=== PATIENT | female | born 1970 | race Caucasian/White ===

== ENCOUNTER 2017-04-03 19:30 | Emergency (ER) | payer MEDICARE ==
[2017-04-03] MEDS ORDERED: Hydromorphone 1 mg/ml Ampule IM ONE (20:15)
[2017-04-03] MEDS ORDERED: Phenergan 25 MG INJ IM ONE (20:15)
[2017-04-03] MEDS ORDERED: Phenergan 25 MG INJ ONE (20:19)
[2017-04-03] MEDS ORDERED: Hydromorphone 1 mg/ml Ampule ONE (20:19)
[2017-04-03 20:29] VITALS: O2SAT 98
--- NOTE | 2017-04-03 20:29 | ERPHSYRPT ---
- History of Present Illness Time Seen by Provider: 04/03/17 20:10 Source: patient Exam Limitations: no limitations Patient Subjective Stated Complaint: pt states she has a migraine since about 3 am. Triage Nursing Assessment: pt alert and oriented, asnwers questions approp. pt ambulatory with steady gait noted. respirations nonlabored. pupils equal and reactive. bilat upper and lower ext strength wnl. Physician History: FOR THE PAST 17 HOURS PT HAS HAD HER TYPICAL MIGRAINE HEADACHE WITH NAUSEA, VOMITING X4 WITHOUT BLOOD, PHOTOPHOBIA AND PHONOPHOBIA. LAST CT HEAD WAS THIS YEAR & WNL. PT DENIES CHEST PAIN, SHORTNESS OF AIR, ABDOMINAL PAIN, WEAKNESS, NUMBNESS. Allergies/Adverse Reactions: Penicillins Allergy (Verified 04/03/17 20:02) Rash Home Medications: Estradiol [Estrace] 1 applic VG UD 04/03/17 [History] Fluticasone Propionate [Flonase NASAL] 1 spray NS DAILY 04/03/17 [History] Levothyroxine Sodium [Synthroid] 125 mcg PO DAILY 04/03/17 [History] Nortriptyline HCl 50 mg PO DAILY 04/03/17 [History] Omeprazole 20 MG [Prilosec 20 mg] 20 mg PO DAILY 04/03/17 [History] Paroxetine HCl [Paxil] 40 mg PO DAILY 04/03/17 [History] Pravastatin Sodium 40 mg PO HS 04/03/17 [History] Prazosin HCl [Minipress] 1 mg PO BID 04/03/17 [History] Topiramate 100 mg [Topamax 100 MG] 100 mg PO BID 04/03/17 [History] Hx Tetanus, Diphtheria Vaccination/Date Given: Yes Hx Influenza Vaccination/Date Given: No Hx Pneumococcal Vaccination/Date Given: No Immunizations Up to Date: Yes - Review of Systems Constitutional: No Fever, No Chills Eyes: Photophobia Respiratory: No Dyspnea Cardiac: No Chest Pain Abdominal/Gastrointestinal: Nausea, Vomiting, No Abdominal Pain Neurological: Headache, Other (PHONOPHOBIA) All Other Systems: Reviewed and Negative - Past Medical History Neurological History: Migraines Psycho-Social History: Anxiety, Depression - Past Surgical History Past Surgical History: Yes Gastrointestinal: Cholecystectomy Female Surgical History: Hysterectomy - Social History Smoking Status: Former smoker Exposure to second hand smoke: Yes Drug Use: none Patient Lives Alone: No - Female History Hx Last Menstrual Period: hyster Hx Now: No - Nursing Vital Signs Nursing Vital Signs: Initial Vital Signs Pulse Rate 85 04/03/17 19:30 Respiratory Rate 18 04/03/17 19:30 Blood Pressure 144/90 04/03/17 19:30 O2 Sat by Pulse Oximetry 98 04/03/17 19:30 Pain Scale Pain Intensity 10 - Physical Exam General Appearance: moderate distress, alert Eye Exam: PERRL/EOMI, photophobia Ears, Nose, Throat Exam: TMs normal, pharynx normal, moist mucous membranes Neck Exam: normal inspection Respiratory Exam: lungs clear Cardiovascular Exam: normal heart sounds Gastrointestinal/Abdomen Exam: soft, normal bowel sounds Back Exam: normal range of motion Extremity Exam: normal inspection, No pedal edema Neurologic Exam: alert, cooperative, sensation nml Skin Exam: warm, dry SpO2 Interpretation: normal SpO2: 98 Oxygen Delivery: Room Air - Course Nursing assessment & vital signs reviewed: Yes Ordered Tests: Medication Summary Discontinued Medications Generic Name Dose Route Start Last Admin Trade Name Freq PRN Reason Stop Dose Admin Hydromorphone HCl 2 mg 04/03/17 20:15 Hydromorphone 1 Mg/Ml Ampule IM 04/03/17 20:16 STAT ONE Hydromorphone HCl Confirm 04/03/17 20:19 Hydromorphone 1 Mg/Ml Ampule Administered 04/03/17 20:20 Dose 2 mg .ROUTE .STK-MED ONE Promethazine HCl 25 mg 04/03/17 20:15 Phenergan 25 Mg Inj IM 04/03/17 20:16 STAT ONE Promethazine HCl Confirm 04/03/17 20:19 Phenergan 25 Mg Inj Administered 04/03/17 20:20 Dose 25 mg .ROUTE .STK-MED ONE - Departure Time of Disposition: 20:33 Departure Disposition: Home Clinical Impression: MIGRAINE HEADACHE, VOMITING Condition: Stable Critical Care Time: No Instructions: Headache, Vomiting -- Adult Additional Instructions: FOLLOW UP WITH PRIVATE DOCTOR TOMORROW. Prescriptions: Promethazine HCl 25 mg [Phenergan 25 mg] 25 mg PO Q4H PRN PRN #14 tablet PRN Reason: Nausea/Vomiting
[2017-04-03 20:44] VITALS: BP 149/87; PULSE 89
== END 2017-04-03 20:44 | disposition home or self-care (01) ==
LOC: ED 19:30
DX: G43.909 Migraine, unspecified, not intractable, without status migrainosus (principal); R11.10 Vomiting, unspecified
CPT/HCPCS: 96372; 99284; J1170; J2550

== ENCOUNTER 2018-08-16 10:10 | Day surgery (SDC) | payer MEDICARE ==
[2018-08-16] MEDS ORDERED: DIPRIVAN 200 MG/20 ML IV ONE (10:11)
[2018-08-16] MEDS ORDERED: LIDOCAINE HCL 2% 100 MG/5 ML IJ ONE (10:11)
[2018-08-16] MEDS ORDERED: Depo-Medrol 40 MG/ML IM ONE (10:11)
[2018-08-16] MEDS ORDERED: Ketamine HCl 50 MG/ML IJ ONE (10:11)
[2018-08-16] MEDS ORDERED: Xylocaine-Mpf 2% 5 Ml Vial IJ ONE (10:11)
--- NOTE | 2018-08-16 12:36 | XRAY ---
Indication: Bilateral L4-S1 MBB. Intraoperative fluoroscopy was provided for 6 seconds. Single digital spot image submitted for interpretation demonstrates posterior needle tips along the expected course of the left and right L4-S1 nerve roots. Correlate with intraoperative findings/report.
--- NOTE | 2018-08-16 12:38 | XRAY ---
6 seconds fluoroscopy time in surgery for bilateral L4-S1 MBB.
[2018-08-16] MEDS ORDERED: Lactated Ringers 1,000 ML IV ONE (17:10)
== END 2018-08-16 12:10 | disposition home or self-care (01) ==
LOC: SDC-PAIN 10:10
PROVIDERS: ATTEND Psychiatry & Neurology Pain Medicine
DX: M47.817 Spondylosis without myelopathy or radiculopathy, lumbosacral region (principal); Z79.899 Other long term (current) drug therapy; F32.9 Major depressive disorder, single episode, unspecified; K21.9 Gastro-esophageal reflux disease without esophagitis; F17.200 Nicotine dependence, unspecified, uncomplicated
CPT/HCPCS: 64493; 64494; 72020; 77003; J1030; J2704

== ENCOUNTER 2018-09-06 09:01 | Day surgery (SDC) | payer MEDICARE ==
[2018-09-06] MEDS ORDERED: Marcaine 0.5% SDV 10 ML IJ ONE (09:02)
[2018-09-06] MEDS ORDERED: XYLOCAINE 1% HCL 20 ML MDV IJ ONE (09:02)
[2018-09-06] MEDS ORDERED: Ketamine HCl 50 MG/ML IV ONE (09:02)
[2018-09-06] MEDS ORDERED: Depo-Medrol 40 MG/ML IM ONE (09:02)
[2018-09-06] MEDS ORDERED: Xylocaine 1% Vial 30 ML PF IJ ONE (09:02)
[2018-09-06] MEDS ORDERED: DIPRIVAN 200 MG/20 ML IV ONE (09:02)
--- NOTE | 2018-09-06 12:20 | XRAY ---
Indication: Bilateral L4-S1 MBB. Intraoperative fluoroscopy was provided for 11 seconds. Single digital spot image submitted for interpretation demonstrates posterior needle tips projecting over the expected course of the left and right L4-S1 nerve roots. Correlate with intraoperative findings/report.
--- NOTE | 2018-09-06 12:22 | XRAY ---
11 seconds fluoroscopy time in surgery for bilateral L4-S1 MBB.
[2018-09-06] MEDS ORDERED: Lactated Ringers 1,000 ML IV ONE (13:47)
== END 2018-09-06 11:10 | disposition home or self-care (01) ==
LOC: SDC-PAIN 09:01
PROVIDERS: ATTEND Psychiatry & Neurology Pain Medicine
DX: M47.816 Spondylosis without myelopathy or radiculopathy, lumbar region (principal); K21.9 Gastro-esophageal reflux disease without esophagitis; M19.90 Unspecified osteoarthritis, unspecified site; F32.9 Major depressive disorder, single episode, unspecified; Z79.899 Other long term (current) drug therapy
CPT/HCPCS: 64493; 64494; 72020; 77002; J1030; J2001; J2704

== ENCOUNTER 2018-10-04 11:59 | Day surgery (SDC) | payer MEDICARE ==
[2018-10-04] MEDS ORDERED: DIPRIVAN 200 MG/20 ML IV ONE (12:00)
[2018-10-04] MEDS ORDERED: Marcaine 0.5% SDV 10 ML IJ ONE (12:00)
[2018-10-04] MEDS ORDERED: Depo-Medrol 40 MG/ML IM ONE (12:00)
[2018-10-04] MEDS ORDERED: Xylocaine 1% Vial 30 ML PF IJ ONE (12:00)
[2018-10-04] MEDS ORDERED: Lactated Ringers 1,000 ML IV ONE (13:34)
--- NOTE | 2018-10-04 14:57 | XRAY ---
Indication: Right L4-S1 RFA. Intraoperative fluoroscopy was provided for 20 seconds. 2 digital spot images submitted for interpretation demonstrates posterior needle tips projecting over the expected course of the right L4-S1 nerve roots. Correlate with intraoperative findings/report.
--- NOTE | 2018-10-04 15:02 | XRAY ---
20 seconds fluoroscopy time in surgery for right L4-S1 RFA.
== END 2018-10-04 13:37 | disposition home or self-care (01) ==
LOC: SDC-PAIN 11:59
PROVIDERS: ATTEND Psychiatry & Neurology Pain Medicine
DX: M47.816 Spondylosis without myelopathy or radiculopathy, lumbar region (principal); K21.9 Gastro-esophageal reflux disease without esophagitis; M19.90 Unspecified osteoarthritis, unspecified site; F32.9 Major depressive disorder, single episode, unspecified
CPT/HCPCS: 64635; 64636; 72100; 77002; J1030; J2001; J2704

== ENCOUNTER 2018-10-18 11:57 | Day surgery (SDC) | payer MEDICARE ==
[2018-10-18] MEDS ORDERED: Xylocaine 1% Vial 30 ML PF IJ ONE (11:58)
[2018-10-18] MEDS ORDERED: Depo-Medrol 40 MG/ML IM ONE (11:58)
[2018-10-18] MEDS ORDERED: Marcaine 0.5% SDV 10 ML IJ ONE (11:58)
[2018-10-18] MEDS ORDERED: DIPRIVAN 200 MG/20 ML IV ONE ×2 (13:24→13:28)
[2018-10-18] MEDS ORDERED: Lactated Ringers 1,000 ML IV ONE (13:35)
--- NOTE | 2018-10-18 14:11 | XRAY ---
17 seconds of fluoroscopy was used in surgery for a left L4-L5 and L5-S1 RFA.
--- NOTE | 2018-10-18 14:22 | XRAY ---
Indication: Left L4-S1 RFA. Intraoperative fluoroscopy was provided for 17 seconds. 2 digital spot image submitted for interpretation demonstrates posterior needle tips projecting over the left L4-S1 nerve roots. Correlate with intraoperative findings/report.
== END 2018-10-18 14:02 | disposition home or self-care (01) ==
LOC: SDC-PAIN 11:57
PROVIDERS: ATTEND Psychiatry & Neurology Pain Medicine
DX: M47.816 Spondylosis without myelopathy or radiculopathy, lumbar region (principal); K21.9 Gastro-esophageal reflux disease without esophagitis; M19.90 Unspecified osteoarthritis, unspecified site; F32.9 Major depressive disorder, single episode, unspecified
CPT/HCPCS: 64635; 64636; 72100; 77002; J1030; J2001; J2704

== ENCOUNTER 2019-01-03 11:23 | Day surgery (SDC) | payer MEDICARE ==
[2019-01-03] MEDS ORDERED: Marcaine 0.5% SDV 10 ML IJ ONE (11:24)
[2019-01-03] MEDS ORDERED: Depo-Medrol 40 MG/ML IM ONE (11:24)
[2019-01-03] MEDS ORDERED: Ketamine HCl 50 MG/ML ONE (13:02)
[2019-01-03] MEDS ORDERED: DIPRIVAN 200 MG/20 ML IV ONE (13:02)
[2019-01-03] MEDS ORDERED: Zofran 4 MG/2 ML VIAL ONE (13:27)
--- NOTE | 2019-01-03 14:52 | XRAY ---
16 seconds fluoroscopy time in surgery for right SI joint.
--- NOTE | 2019-01-03 14:58 | XRAY ---
Indication: Right SI joint injection. Intraoperative fluoroscopy was provided for 16 seconds. 2 digital spot images submitted for interpretation demonstrates posterior needle tip projecting over the inferior right SI joint. Correlate with intraoperative findings/report.
[2019-01-03] MEDS ORDERED: Lactated Ringers 1,000 ML IV ONE (15:54)
== END 2019-01-03 13:50 | disposition home or self-care (01) ==
LOC: SDC-PAIN 11:23
PROVIDERS: ATTEND Psychiatry & Neurology Pain Medicine
DX: M46.1 Sacroiliitis, not elsewhere classified (principal); K21.9 Gastro-esophageal reflux disease without esophagitis; Z79.899 Other long term (current) drug therapy
CPT/HCPCS: 72020; 77002; J1030; J2405; J2704

== ENCOUNTER 2020-01-29 17:26 | Emergency (ER) | payer MEDICARE ==
[2020-01-29 17:45] VITALS: O2SAT 98
--- NOTE | 2020-01-29 18:10 | ERPHSYRPT ---
- History of Present Illness Time Seen by Provider: 01/29/20 17:55 Source: patient Exam Limitations: clinical condition Patient Subjective Stated Complaint: anxiety and nausea Triage Nursing Assessment: pt to ED c/o anxiety and nausea onset 9 days ago. pt states her psychiatrist had blood drawn last week and she was told her WBC count was high. pt states she has attempted to go to [place] and attempted to notify those staff members. states "they just dont seem to care about my anxiety or my WBC." pt appears very tearful and anxious when talking about self and experiences. denies SI/HI. states she does have hx anxiety and depression and ta kes paxil daily and valium PRN (new last week). Physician History: This is a 49-year-old white female who is obese and has a history of hypertension and is on thyroid replacement therapy and has significant anxiety issues. Her psychiatrist liyah labs last week and there was some abnormalities including slightly elevated white count and slightly elevated liver function te st. The patient states that she is beside herself and has had nausea and has not been taking much and. Patient does have a history of pancreatitis in the past. Patient is here at the emergency department because her psychiatrist told her that if she was not feeling well to go to the emergency room. Patient denies chest pain and she denies shortness of air. She does not have significant abdominal pain but she does have some. Timing/Duration: day(s) (Several days) Severity: mild Associated Symptoms: nausea, abdominal pain, loss of appetite, weakness, No vomiting, No shortness of breath, No chest pain Allergies/Adverse Reactions: diphenhydramine [From Benadryl] Allergy (Mild, Verified 01/29/20 17:52) Penicillins Allergy (Verified 01/29/20 17:52) Rash Home Medications: Fluticasone Propionate [Flonase NASAL] 1 spray NS DAILY PRN PRN 04/03/17 [History] Levothyroxine Sodium [Synthroid] 125 mcg PO DAILY 04/03/17 [History] Omeprazole 20 MG [Prilosec 20 mg] 20 mg PO DAILY 04/03/17 [History] PARoxetine HCl [Paxil] 80 mg PO DAILY 04/03/17 [History] Pravastatin Sodium 40 mg PO HS 04/03/17 [History] Prazosin HCl [Minipress] 1 mg PO BID 04/03/17 [History] estradioL [Estrace] 1 applic VG UD 04/03/17 [History] Diazepam [Valium] 5 mg PO BID 01/29/20 [History] Dicyclomine HCl 20 mg [Bentyl 20 mg] 20 mg PO BID 01/29/20 [History] Hx Tetanus, Diphtheria Vaccination/Date Given: No Hx Influenza Vaccination/Date Given: No Hx Pneumococcal Vaccination/Date Given: No Immunizations Up to Date: Yes Travel Risk - International Travel Have you traveled outside of the country in past 3 weeks: No - Coronavirus Screening Are you exhibiting any of the following symptoms?: No Close contact with a COVID-19 positive Pt in past 14-21 Days: No - Review of Systems Constitutional: Weakness Eyes: No Symptoms Ears, Nose, & Throat: No Symptoms Respiratory: No Symptoms Cardiac: No Symptoms Abdominal/Gastrointestinal: Abdominal Pain, Nausea, Appetite Changes Genitourinary Symptoms: No Symptoms Musculoskeletal: No Symptoms Skin: No Symptoms Neurological: No Symptoms Psychological: Anxiety Endocrine: No Symptoms Hematologic/Lymphatic: No Symptoms Immunological/Allergic: No Symptoms All Other Systems: Reviewed and Negative - Past Medical History Pertinent Past Medical History: Yes Neurological History: Migraines ENT History: No Pertinent History Cardiac History: No Pertinent History Respiratory History: No Pertinent History Endocrine Medical History: No Pertinent History Musculoskeletal History: No Pertinent History GI Medical History: No Pertinent History History: No Pertinent History Psycho-Social History: Anxiety, Depression Female Reproductive Disorders: No Pertinent History - Past Surgical History Past Surgical History: Yes Neuro Surgical History: No Pertinent History Cardiac: No Pertinent History Respiratory: No Pertinent History Gastrointestinal: Cholecystectomy Genitourinary: No Pertinent History Musculoskeletal: No Pertinent History Female Surgical History: Hysterectomy - Social History Smoking Status: Former smoker Exposure to second hand smoke: Yes Drug Use: marijuana Patient Lives Alone: No - Female History Hx Now: No - Nursing Vital Signs Nursing Vital Signs: Initial Vital Signs Temperature 97.9 F 01/29/20 17:38 Pulse Rate 73 01/29/20 17:38 Respiratory Rate 01/29/20 17:38 Blood Pressure 118/68 01/29/20 17:38 O2 Sat by Pulse Oximetry 98 01/29/20 17:38 Pain Scale Pain Intensity 9 - Physical Exam General Appearance: mild distress, alert, anxiety, obese Eye Exam: PERRL/EOMI, eyes nml inspection Ears, Nose, Throat Exam: normal ENT inspection, moist mucous membranes Neck Exam: normal inspection, non-tender, supple, full range of motion Respiratory Exam: normal breath sounds, lungs clear, airway intact, No chest tenderness, No respiratory distress Cardiovascular Exam: regular rate/rhythm, normal heart sounds, normal peripheral pulses Gastrointestinal/Abdomen Exam: soft, normal bowel sounds, tenderness (Mild diffuse), No guarding Pelvic Exam: not done Rectal Exam: not done Back Exam: normal inspection, normal range of motion, No CVA tenderness, No vertebral tenderness Extremity Exam: normal inspection, normal range of motion, pelvis stable Neurologic Exam: alert, oriented x 3, cooperative, cartographic aide II-XII nml as tested, nml cerebellar function, nml station & gait, sensation nml Skin Exam: normal color, warm, dry Lymphatic Exam: No adenopathy SpO2 Interpretation: normal SpO2: 98 O2 Delivery: Room Air - Course Nursing assessment & vital signs reviewed: Yes EKG Interpreted by Me: RATE (71), Left Manvel Deviation, NORMAL INTERVALS, NORMAL QRS, Other (The EKG computer reading says ST elevation. However, I do not believe this patient has ST elevation. We will repeat the EKG.) Ordered Tests: Active Orders 24 hr Category Date Time Status EKG-ER Only STAT Care 01/29/20 18:11 Active IV Insertion STAT Care 01/29/20 18:11 Active AMYLASE Stat Lab 01/29/20 18:25 Completed CBC W DIFF Stat Lab 01/29/20 18:25 Completed CMP Stat Lab 01/29/20 18:25 Completed CULTURE,URINE Stat Lab 01/29/20 18:25 Received LIPASE Stat Lab 01/29/20 18:25 Completed Lactic Acid Stat Lab 01/29/20 18:30 Completed T4 (Thyroxine) Stat Lab 01/29/20 18:25 Received TROPONIN Q3H Lab 01/29/20 18:25 Completed TROPONIN Q3H Lab 01/29/20 21:15 Ordered TROPONIN Q3H Lab 01/30/20 00:15 Ordered TROPONIN Q3H Lab 01/30/20 03:15 Ordered TROPONIN Q3H Lab 01/30/20 06:15 Ordered TSH [TSH, 3RD Generation] Stat Lab 01/29/20 18:25 Received UA W/RFX UR CULTURE Stat Lab 01/29/20 18:25 Completed Medication Summary Discontinued Medications Generic Name Dose Route Start Last Admin Trade Name [facility] PRN Reason Stop Dose Admin Sodium Chloride 1,000 mls @ 999 mls/hr 01/29/20 18:11 01/29/20 18:38 Sodium Chloride 0.9% 1000 Ml IV 01/29/20 19:11 999 mls/hr .Q1H1M STA Administration Sodium Chloride Confirm 01/29/20 18:36 Sodium Chloride 0.9% 1000 Ml Administered 01/29/20 18:37 Dose 1,000 mls @ ud .ROUTE .STK-MED ONE Lorazepam 1 mg 01/29/20 19:10 01/29/20 19:22 Ativan 2 Mg/1 Ml Vial IV 01/29/20 19:11 1 mg STAT ONE Administration Lorazepam Confirm 01/29/20 19:19 Ativan 2 Mg/1 Ml Vial Administered 01/29/20 19:20 Dose 2 mg .ROUTE .STK-MED ONE Ondansetron HCl 4 mg 01/29/20 18:11 01/29/20 18:38 Zofran 4 Mg/2 Ml Vial IV 01/29/20 18:12 4 mg STAT ONE Administration Ondansetron HCl Confirm 01/29/20 18:36 Zofran 4 Mg/2 Ml Vial Administered 01/29/20 18:37 Dose 4 mg .ROUTE .STK-MED ONE Lab/Rad Data: Laboratory Result Diagrams 01/29/20 18:25 01/29/20 18:25 Laboratory Results 01/29/20 01/29/20 01/29/20 Range/Units 18:30 18:25 18:25 WBC (4.0-10.5) K/mm3 RBC (4.1-5.4) M/mm3 Hgb (12.0-16.0) gm/dl Hct (35-47) % MCV (78-100) fl MCH (26-32) pg MCHC (32-36) g/dl RDW (11.5-14.0) % Plt Count (150-450) K/mm3 MPV (7.5-11.0) fl Gran % (36.0-66.0) % Eos # (Auto) (0-0.5) Absolute Lymphs (auto) (1.0-4.6) Absolute Monos (auto) (0.0-1.3) Lymphocytes % (24.0-44.0) % Monocytes % (0.0-12.0) % Eosinophils % (0.00-5.0) % Basophils % (0.0-0.4) % Absolute Granulocytes (1.4-6.9) Basophils # (0-0.4) Sodium (137-145) mmol/L Potassium (3.5-5.1) mmol/L Chloride (98-107) mmol/L Carbon Dioxide (22-30) mmol/L Anion Gap (5-15) MEQ/L BUN (7-17) mg/dL Creatinine (0.52-1.04) mg/dL Estimated GFR ML/MIN Glucose (74-106) mg/dL Lactic Acid 0.9 (0.4-2.0) Calcium (8.4-10.2) mg/dL Total Bilirubin (0.2-1.3) mg/dL AST (14-36) U/L ALT (0-35) U/L Alkaline Phosphatase (38-126) U/L Troponin I < 0.012 (0.000-0.034) ng/mL Serum Total Protein (6.3-8.2) g/dL Albumin (3.5-5.0) g/dL Amylase (30-110) U/L Lipase (23-300) U/L Urine Color EMMANUELLE (YELLOW) Urine Appearance SLIGHTLY CLOUDY (CLEAR) Urine pH 7.0 (5-6) Ur Specific [place] 1.025 (1.005-1.025) Urine Protein 30 (Negative) Urine Ketones TRACE (NEGATIVE) Urine Blood NEGATIVE (0-5) Mervin/ul Urine Nitrite NEGATIVE (NEGATIVE) Urine Bilirubin NEGATIVE (NEGATIVE) Urine Urobilinogen NEGATIVE (0-1) mg/dL Ur Leukocyte Esterase NEGATIVE (NEGATIVE) Urine WBC (Auto) 0-2 (0-5) /HPF Urine RBC (Auto) 11-15 (0-2) /HPF U Epithel Cells (Auto) FEW (FEW) /HPF Urine Bacteria (Auto) MODERATE (NEGATIVE) /HPF Amorphous Crystals FEW (NEGATIVE) /HPF Urine Mucus (Auto) MANY (NEGATIVE) /HPF Urine Culture Reflexed YES (NO) Urine Glucose NEGATIVE (NEGATIVE) mg/dL 01/29/20 01/29/20 Range/Units 18:25 18:25 WBC 9.6 (4.0-10.5) K/mm3 RBC 4.72 (4.1-5.4) M/mm3 Hgb 14.0 (12.0-16.0) gm/dl Hct 40.7 (35-47) % MCV 86.2 (78-100) fl MCH 29.7 (26-32) pg MCHC 34.4 (32-36) g/dl RDW 13.5 (11.5-14.0) % Plt Count 255 (150-450) K/mm3 MPV 11.8 H (7.5-11.0) fl Gran % 70.4 H (36.0-66.0) % Eos # (Auto) 0.03 (0-0.5) Absolute Lymphs (auto) 2.15 (1.0-4.6) Absolute Monos (auto) 0.63 (0.0-1.3) Lymphocytes % 22.4 L (24.0-44.0) % Monocytes % 6.6 (0.0-12.0) % Eosinophils % 0.3 (0.00-5.0) % Basophils % 0.3 (0.0-0.4) % Absolute Granulocytes 6.76 (1.4-6.9) Basophils # 0.03 (0-0.4) Sodium 139 (137-145) mmol/L Potassium 3.4 L (3.5-5.1) mmol/L Chloride 108 H (98-107) mmol/L Carbon Dioxide 25 (22-30) mmol/L Anion Gap 9.6 (5-15) MEQ/L BUN 8 (7-17) mg/dL Creatinine 0.50 L (0.52-1.04) mg/dL Estimated GFR > 60.0 ML/MIN Glucose 100 (74-106) mg/dL Lactic Acid (0.4-2.0) Calcium 9.8 (8.4-10.2) mg/dL Total Bilirubin 0.40 (0.2-1.3) mg/dL AST 25 (14-36) U/L ALT 29 (0-35) U/L Alkaline Phosphatase 87 (38-126) U/L Troponin I (0.000-0.034) ng/mL Serum Total Protein 7.2 (6.3-8.2) g/dL Albumin 4.3 (3.5-5.0) g/dL Amylase 55 (30-110) U/L Lipase 57 (23-300) U/L Urine Color (YELLOW) Urine Appearance (CLEAR) Urine pH (5-6) Ur Specific [place] (1.005-1.025) Urine Protein (Negative) Urine Ketones (NEGATIVE) Urine Blood (0-5) Mervin/ul Urine Nitrite (NEGATIVE) Urine Bilirubin (NEGATIVE) Urine Urobilinogen (0-1) mg/dL Ur Leukocyte Esterase (NEGATIVE) Urine WBC (Auto) (0-5) /HPF Urine RBC (Auto) (0-2) /HPF U Epithel Cells (Auto) (FEW) /HPF Urine Bacteria (Auto) (NEGATIVE) /HPF Amorphous Crystals (NEGATIVE) /HPF Urine Mucus (Auto) (NEGATIVE) /HPF Urine Culture Reflexed (NO) Urine Glucose (NEGATIVE) mg/dL - Progress Progress: improved, re-examined Counseled pt/family regarding: lab results, diagnosis, need for follow-up - Departure Departure Disposition: Home Clinical Impression: Anxiety about health Condition: Stable Critical Care Time: No Referrals: PAT AMIN NP [Primary Care Provider] - Additional Instructions: Drink plenty of fluids take your medication as prescribed. Follow-up with your primary care physician for further management of your physical health issues. Follow-up with your psychiatrist for your mental health issues.
[2020-01-29] MEDS ORDERED: Sodium Chloride 0.9% 1000 ML 1,000 ML IV STA (18:11)
[2020-01-29] MEDS ORDERED: Zofran 4 MG/2 ML VIAL IV ONE (18:11)
[2020-01-29 18:31] LABS: Amourphous Crystal FEW /HPF (NEGATIVE); Appearance SLIGHTLY CLOUDY (CLEAR); Bacteria MODERATE /HPF (NEGATIVE); Bilirubin NEGATIVE (NEGATIVE); Blood NEGATIVE Ery/ul (0-5); Epithelial Cells FEW /HPF (FEW); Glucose NEGATIVE (NEGATIVE); Ketones TRACE (NEGATIVE); Leukocyte Esterase NEGATIVE (NEGATIVE); Mucus MANY /HPF (NEGATIVE); Nitrite NEGATIVE (NEGATIVE); Protein,Urine Dip 30 (Negative); Specific Gravity 1.025 (1.005-1.025); Urobilinogen NEGATIVE mg/dL (0-1); WBC 0-2 /HPF (0-5)
[2020-01-29] MEDS ORDERED: Zofran 4 MG/2 ML VIAL ONE (18:36)
[2020-01-29] MEDS ORDERED: Sodium Chloride 0.9% 1000 ML 1,000 ML ONE (18:36)
[2020-01-29 18:54] LABS: Absolute Neutrophil Ct (ANC) 6.76 (1.4-6.9); BASOPHIL % 0.3 % (0.0-0.4); Basophil (Absolute #) 0.03 (0-0.4); Eosinophil % 0.3 % (0.00-5.0); Eosinophil (Absolute #) 0.03 (0-0.5); Hematocrit 40.7 % (35-47); Lymphocyte (Absolute #) 2.15 (1.0-4.6); Lymphocytes % 22.4 % (24.0-44.0); Mean Cell Volume 86.2 fl (78-100); Mean Corpuscular Hemoglobin 29.7 pg (26-32); Mean Corpuscular Hgb Concent. 34.4 g/dl (32-36); Mean Platelet Volume 11.8 fl (7.5-11.0); Monocyte (Absolute #) 0.63 (0.0-1.3); Monocytes % 6.6 % (0.0-12.0); Neutrophil % 70.4 % (36.0-66.0); Platelet Count 255 K/mm3 (150-450); Red Blood Count 4.72 M/mm3 (4.1-5.4); Red Cell Distribution Width 13.5 % (11.5-14.0); White Blood Count 9.6 K/mm3 (4.0-10.5)
[2020-01-29] MEDS ORDERED: Ativan 2 MG/1 ML VIAL IV ONE (19:10)
[2020-01-29] MEDS ORDERED: Ativan 2 MG/1 ML VIAL ONE (19:19)
[2020-01-29 19:21] LABS: ALBUMIN 4.3 g/dL (3.5-5.0); ALKALINE PHOSPHATASE 87 U/L (38-126); AMYLASE 55 U/L (30-110); ANION GAP 9.6 MEQ/L (5-15); BLOOD UREA NITROGEN 8 mg/dL (7-17); CHLORIDE 108 mmol/L (98-107); Calcium 9.8 mg/dL (8.4-10.2); Carbon Dioxide 25 mmol/L (22-30); EST GLOMERULAR FILTRATION RATE > 60.0 ML/MIN; Glucose 100 mg/dL (74-106); LIPASE 57 U/L (23-300); Potassium 3.4 mmol/L (3.5-5.1); SGOT/AST 25 U/L (14-36); SGPT/ALT 29 U/L (0-35); SODIUM 139 mmol/L (137-145); Total Protein 7.2 g/dL (6.3-8.2)
[2020-01-29 19:53] LABS: T4 (Thyroxine) 12.8 ug/dL (5.53-10.96); TSH, 3RD Generation 0.957 mIU/L (0.47-4.68)
[2020-01-29 19:58] VITALS: BP 105/76; PULSE 75
== END 2020-01-29 20:34 | disposition home or self-care (01) ==
LOC: ED 17:26
DX: F41.9 Anxiety disorder, unspecified (principal); F32.9 Major depressive disorder, single episode, unspecified; R10.9 Unspecified abdominal pain; I10 Essential (primary) hypertension
CPT/HCPCS: 36000; 36415; 80053; 81001; 82150; 83605; 83690; 84436; 84443; 84484; 85025; 87086; 93005; 96360; 96374; 96375; 99284; J2060; J2405

== ENCOUNTER 2020-05-28 12:28 | Day surgery (SDC) | payer MEDICARE ==
[2020-05-28] MEDS ORDERED: BUPIVACAINE 0.5% VIAL IJ ONE (12:29)
[2020-05-28] MEDS ORDERED: Depo-Medrol 40 MG/ML IM ONE (12:29)
[2020-05-28] MEDS ORDERED: DIPRIVAN 200 MG/20 ML IV ONE (14:56)
[2020-05-28] MEDS ORDERED: Ketamine HCl 50 MG/ML ONE (14:56)
[2020-05-28] MEDS ORDERED: Lactated Ringers 1,000 ML IV ONE (15:57)
--- NOTE | 2020-05-28 16:43 | XRAY ---
Indication: Right L4-S1 MBB. Intraoperative fluoroscopy provided for 9 seconds. Single digital spot image submitted for interpretation demonstrates posterior needle tips projecting over the expected right L4-S1 nerve roots. Correlate with intraoperative findings/report.
--- NOTE | 2020-05-28 16:45 | XRAY ---
9 seconds of fluoroscopy was used in surgery for a right L4-L5 and L5-S1 MBB.
== END 2020-05-28 15:19 | disposition home or self-care (01) ==
LOC: SDC 12:28
PROVIDERS: ATTEND Psychiatry & Neurology Pain Medicine
DX: M47.816 Spondylosis without myelopathy or radiculopathy, lumbar region (principal); Z79.899 Other long term (current) drug therapy
CPT/HCPCS: 64493; 64494; 72020; 77002; J1030; J2704

== ENCOUNTER 2020-10-01 14:56 | Day surgery (SDC) | payer MEDICARE ==
[2020-10-01] MEDS ORDERED: Depo-Medrol 40 MG/ML IM ONE (14:57)
[2020-10-01] MEDS ORDERED: BUPIVACAINE 0.5% VIAL IJ ONE (14:57)
[2020-10-01] MEDS ORDERED: Xylocaine 1% Vial 30 ML PF IJ ONE (14:57)
[2020-10-01] MEDS ORDERED: Lactated Ringers 1,000 ML IV ONE (15:59)
[2020-10-01] MEDS ORDERED: DIPRIVAN 200 MG/20 ML IV ONE (16:59)
--- NOTE | 2020-10-01 20:36 | XRAY ---
Indication: Right L4-S1 RFA. Intraoperative fluoroscopy provided for 20 seconds. 3 digital spot images submitted for interpretation demonstrates posterior needle tips projecting over the expected right L4-S1 nerve roots. Correlate with intraoperative findings/report.
--- NOTE | 2020-10-02 09:22 | XRAY ---
20 seconds fluoroscopy time in surgery for right L4-S1 RFA.
== END 2020-10-01 17:28 | disposition home or self-care (01) ==
LOC: SDC-PAIN 14:56
PROVIDERS: ATTEND Psychiatry & Neurology Pain Medicine
DX: M47.816 Spondylosis without myelopathy or radiculopathy, lumbar region (principal); Z79.899 Other long term (current) drug therapy
CPT/HCPCS: 64635; 64636; 72100; 77002; J1030; J2001; J2704

== ENCOUNTER 2021-07-23 13:49 | Day surgery (SDC) | payer MEDICARE ==
[2021-07-23] MEDS ORDERED: Sodium Chloride 0.9(Preservative Free) 10 ML IJ ONE (13:50)
[2021-07-23] MEDS ORDERED: Depo-Medrol 40 MG/ML IM ONE (13:50)
[2021-07-23] MEDS ORDERED: Lactated Ringers 1,000 ML IV ONE (15:13)
[2021-07-23] MEDS ORDERED: DIPRIVAN 200 MG/20 ML IV ONE (15:27)
--- NOTE | 2021-07-23 16:37 | XRAY ---
Indication: Caudal CLAIRE. Intraoperative fluoroscopy provided for 24 seconds. 3 digital spot image submitted for interpretation demonstrates caudal needle tip projecting mid sacrum. Small amount of contrast injected for needle tip placement. Correlate with intraoperative findings/report.
--- NOTE | 2021-07-23 16:40 | XRAY ---
24 seconds of fluoroscopy was used in surgery for a caudal CLAIRE.
== END 2021-07-23 15:50 | disposition home or self-care (01) ==
LOC: SDC-PAIN 13:49
PROVIDERS: ATTEND Psychiatry & Neurology Pain Medicine
DX: M54.16 Radiculopathy, lumbar region (principal); Z79.899 Other long term (current) drug therapy
CPT/HCPCS: 62323; 72100; 77002; J1030; J2704; Q9966